=== PATIENT | female | born 1950 | race Caucasian/White ===

== ENCOUNTER 2017-03-25 10:01 | Emergency (ER) | payer MEDICARE, BC ==
--- NOTE | 2017-03-25 10:37 | ED ---
Allergic Reaction/Systemic - HPI Summary HPI Summary: Patient presents with CC of weakness, limp body x 30 minutes, unable to control her body such as blinking, lifting extremities, walking. She notes to starting doxycyline for a sinus infection yesterday evening and again took the medication this morning. Approx 30 minutes after taking the medication she states she felt these symptoms. PMHx includes MS. She denies taking any medications d/t previous liver damage from medications. She has never had an episode like this before. She has had episodes with similar feelings, but never to this degree. Symptoms have resolved, but she is concerned about an allergic reaction. Endorses some SOB, but feels it may be at baseline and sinus infection contributing. She has never had doxycycline before and notes to other allergies with abx. She notes to sore throat, frontal and maxillary sinus pressure, cough, nasal drainage, teeth pain and HENDRICKS prior to the start of abx. - History of Current Complaint Chief Complaint: EDAllergicReaction Time Seen by Provider: 03/25/17 10:11 Hx Obtained From: Patient Hx Last Menstrual Period: tubal ligation Onset/Duration: Sudden Onset Timing: Constant, Lasting Minutes Severity Initially: Severe Severity Currently: None Pain Intensity: 0 Pain Scale Used: 0-10 Numeric Associated Signs And Symptoms: Positive: Cough Wheezing, Difficulty Breathing, Throat Tightening - Related Hx Possible Reaction To: Unknown - Allergies/Home Medications Allergies/Adverse Reactions: Allergies Allergy/AdvReac Type Severity Reaction Status Date / Time Amoxicillin [From Augmentin] Allergy Numbness Verified 03/25/17 11:41 And Tingling Clavulanic Acid Allergy Numbness Verified 03/25/17 11:41 [From Augmentin] And Tingling PMH/Surg Hx/FS Hx/Imm Hx Previously Healthy: Yes Endocrine/Hematology History: Denies: Hx Diabetes, Hx Systemic Lupus Erythematosus, Hx Thyroid Disease Cardiovascular History: Denies: Hx Congestive Heart Failure, Hx Hypercholesterolemia, Hx Hypertension , Hx Pacemaker/ICD, Hx Peripheral Vascular Disease Respiratory History: Denies: Hx Asthma, Hx Chronic Obstructive Pulmonary Disease (COPD) GI History: Denies: Hx Ulcer History: Denies: Hx Dialysis, Hx Renal Disease Musculoskeletal History: Denies: Hx Arthritis, Hx Rheumatoid Arthritis, Hx Osteoporosis Sensory History: Denies: Hx Cataracts, Hx Contacts or Glasses, Hx Glaucoma, Hx Hearing Aid Opthamlomology History: Denies: Hx Cataracts, Hx Contacts or Glasses, Hx Glaucoma Neurological History: Denies: Hx Headaches, Hx Seizures, Hx Transient Ischemic Attacks (TIA) Psychiatric History: Reports: Hx Panic Disorder Denies: Hx Anxiety, Hx Depression - Cancer History Hx Chemotherapy: No - Surgical History Surgery Procedure, Year, and Place: GB SURGERY. RIGHT foot surgery 04/2014 - [facility] 10/2014. csection x3 - Immunization History Hx Pertussis Vaccination: No Immunizations Up to Date: Unable to Obtain/Confirm Infectious Disease History: Denies: Hx Hepatitis, Hx Human Immunodeficiency Virus (HIV), Traveled Outside the [place] in Last 30 Days - Social History Occupation: Unemployed Lives: With Family Alcohol Use: Occasionally Alcohol Amount: 1 DRINK Hx Substance Use: No Substance Use Type: Reports: None Hx Tobacco Use: No Smoking Status (MU): Never Smoked Tobacco Review of Systems Constitutional: Negative Eyes: Negative Positive: Dental Pain, Sore Throat, Ear Ache, Nasal Discharge Positive: Chest Pain Positive: Shortness Of Breath, Cough Gastrointestinal: Negative Positive: no symptoms reported, see HPI Skin: Negative Positive: Weakness, Paresthesia, Numbness Psychological: Normal All Other Systems Reviewed And Are Negative: Yes Physical Exam Triage Information Reviewed: Yes Vital Signs Reviewed: Yes Appearance: Positive: Well-Appearing, Well-Nourished Skin: Positive: Warm, Skin Color Reflects Adequate Perfusion Head/Face: Positive: Normal Head/Face Inspection Eyes: Positive: EOMI, PRESTON, Conjunctiva Clear ENT: Positive: Hearing grossly normal, Pharynx normal, Nasal congestion, Nasal drainage, TMs normal, TM dull, Dental tenderness Neck: Positive: Supple, No Lymphadenopathy, Tenderness @ - anterior LN Respiratory/Lung Sounds: Positive: Clear to Auscultation, Breath Sounds Present Cardiovascular: Positive: RRR, Pulses are Symmetrical in both Upper and Lower Extremities Musculoskeletal: Positive: Normal, Limited @ - all extremities - possibly at baseline d/t MS Neurological: Positive: Sensory/Motor Intact, Alert, Oriented to Person Place, Time, CN Intact II-III, Reflexes Intact, Speech Normal Psychiatric: Positive: Normal, Affect/Mood Appropriate AVPU Assessment: Alert - [place] Coma Scale Best Eye Response: 4 - Spontaneous Best Motor Response: 6 - Obeys Commands Best Verbal Response: 5 - Oriented Diagnostics - Laboratory Result Diagrams: 03/25/17 11:15 03/25/17 11:15 Lab Statement: Any lab studies that have been ordered have been reviewed, and results considered in the medical decision making process. Allergic Reaction Course/Dx - Course Course Of Treatment: Patients labs were WNL. Likely reaction to doxycycline. During her stay, she feels improved and denies any senses of throat closing or SOB. She is switched from doxy to levaquin based on her allergies. Patient made aware of plan and is OK with discharge. Patient will follow up with PCP and return if symptoms become worse. Return precautions given, medications and side effects reviewed. - Diagnoses Differential Diagnosis/HQI/PQRI: Positive: Airway Obstruction, Anaphylaxis Provider Diagnoses: Medication reaction Discharge - Discharge Plan Condition: Stable Disposition: HOME Prescriptions: Benzonatate CAP* [Tessalon CAP*] 100 mg PO TID #21 cap Levofloxacin TAB* [Levaquin 500 Tab*] 500 mg PO DAILY #5 tab MDD 1 Levofloxacin TAB* [Levaquin 500 Tab*] 500 mg PO DAILY #5 tab Patient Education Materials: Antibiotic Medication Allergy (ED) Referrals: No Primary Care Phys,NOPCP [Primary Care Provider] - Additional Instructions: For any worsening symptoms, return to the ED immediately or see your PCP. Take all medications as directed and follow up with your PCP within a week. Do not discontinue the antibiotics until they are gone, even if you begin to feel improved.\ Discontinue doxycycline
--- NOTE | 2017-03-25 11:19 | RAD ---
INDICATION: Shortness of breath. COMPARISON: Comparison is made with prior chest x-ray study from April 29, 2009. TECHNIQUE: A portable view of the chest was obtained. FINDINGS: Cardiac and mediastinal contours appear to be within normal limits. The lungs are underinflated. There is a linear density at the left lung base most consistent with subsegmental atelectasis. The lungs are otherwise clear. No pleural effusion is seen. IMPRESSION: NO EVIDENCE FOR ACUTE DISEASE.
[2017-03-25 11:31] LABS: Hematocrit 41 % (35-47); Hemoglobin 13.6 g/dl (12.0-16.0); Mean Corpuscular HGB Conc 34 g/dl (31-36); Mean Corpuscular Hemoglobin 31 pg (27-31); Mean Corpuscular Volume 91 fL (80-97); Mean Platelet Volume 8 um3 (7.4-10.4); Red Blood Count 4.44 10^6/ul (4.0-5.4); Red Cell Distribution Width 13 % (10.5-15); White Blood Count 9.8 10^3/ul (3.5-10.8)
[2017-03-25 11:39] LABS: Albumin 4.1 g/dL (3.2-5.2); BUN/Creatinine Ratio 22.4 (8-20); Calcium 9.5 mg/dL (8.6-10.3); EGFR Non-African American 103.4 (>60); Potassium 3.8 mmol/L (3.5-5.0); Total Bilirubin 0.6 mg/dL (0.2-1.0); Total Protein 7.1 g/dL (6.4-8.9)
[2017-03-25 11:42] LABS: Troponin I 0.01 ng/mL (<0.04)
[2017-03-25 12:39] VITALS: BP 127/59
== END 2017-03-25 13:47 | disposition home or self-care (01) ==
LOC: ED 10:01
DX: T36.4X5A Adverse effect of tetracyclines, initial encounter (principal); R53.1 Weakness; K08.89 Other specified disorders of teeth and supporting structures; R07.9 Chest pain, unspecified; Y92.9 Unspecified place or not applicable; R06.02 Shortness of breath
CPT/HCPCS: 36415; 71010; 80053; 83605; 84484; 85025; 85610; 93005; 96374; 99282